=== PATIENT | female | born 2000 | race Caucasian/White ===

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

== ENCOUNTER 2020-06-03 16:03 | Emergency (ER) | payer OTHER ==
[2020-06-03 16:27] VITALS: BP 116/66
== END 2020-06-03 16:57 | disposition left against medical advice (07) ==
LOC: ER 16:03
DX: Z53.21 Procedure and treatment not carried out due to patient leaving prior to being seen by health care provider (principal)